=== PATIENT | male | born 1985 | race Caucasian/White ===

== ENCOUNTER → 2020-02-16 | Outpatient (CLI) | payer OTHER ==
[~2020-02-16] MED LIST: FLUTICASONE-SA1 EAC4 INH; PROAIR HFA8.5 GM INH; PROTONIX40 M2 PO
== END ==
LOC: M.LAB 14:42
PROVIDERS: ATTEND Surgery
DX: Z01.812 Encounter for preprocedural laboratory examination (principal); Z20.828 Contact with and (suspected) exposure to other viral communicable diseases; K80.20 Calculus of gallbladder without cholecystitis without obstruction

== ENCOUNTER → 2020-02-22 | Day surgery (SDC) | payer OTHER ==
[~2020-02-22] MED LIST changes: +OXYCODONE HCL5 MG PO
--- NOTE | 2020-02-24 09:02 | OP ---
[address] [address] OPERATIVE REPORT Name: DAVID URBINA Room: [facility].#: [id number] Admission: 02/22/20 Attend Phys: Mony Jackson DO Discharge: Date of : 89 Report #: [id number] THIS REPORT FOR: //name// cc: FARIDA Warren family physician/PCP FARIDA - Briana family physician/PCP ~ CC: Mony IQBAL physician/PCP DICTATED BY: Renny Tate DO DATE OF SERVICE: 02/22/2020 PREOPERATIVE DIAGNOSIS: Symptomatic gallstones. POSTOPERATIVE DIAGNOSIS: Symptomatic gallstones. SURGEON: Mony Jackson DO CO-SURGEON: Renny Tate, PGY5 MANAGER FLEET: MS Phillip3. OPERATION PERFORMED: Laparoscopic cholecystectomy. ANESTHESIA: General and local. ESTIMATED BLOOD LOSS: 3 mL. SPECIMEN: Gallbladder. COMPLICATIONS: None. CONDITION: Stable. DISPOSITION: PACU to home. INDICATIONS: The patient is a 34-year-old male who presented with a CT positive gallstones and history of episodic postprandial right upper quadrant pain. He was informed of the risks and benefits of laparoscopic cholecystectomy with risks including but not limited to bleeding, infection, bowel injury, bile duct injury, hernia formation, need for reoperation and need for open procedure. He understood these risks and decided to proceed with surgery. TECHNIQUE: After informed consent was obtained, the patient was brought to the operating room and placed in supine position. SCDs were on and running. Preoperative antibiotics were given. General anesthesia was administered with [facility] [address] [place] [address] OPERATIVE REPORT Name: DAVID URBINA Room: [facility]#: [id number] Admission: 02/22/20 Attend Phys: Mony Jackson DO Discharge: Date of : 89 Report #: [id number] an ET tube. Bilateral transversus abdominis plane blocks were placed by anesthesia. The patient was prepped and draped in the usual sterile fashion. A surgical pause was held to confirm proper patient and procedure. 0.5% Marcaine was injected inferior to the umbilicus. The infraumbilical skin was elevated with 2 Adson's and incised with an 11 blade. Dissection was carried through the subcutaneous fat using blunt dissection with S retractors. Fascia was identified and elevated with 2 Kochers and incised using cautery. Peritoneum was bluntly entered using a Alessandra. A finger was then introduced into the abdomen to confirm intraperitoneal location. A 0 Vicryl was then used to place stay sutures on either side of the fascia. The 12 mm Wandy trocar was introduced. The abdomen was insufflated. Camera was inserted into the abdomen. Attention was turned towards the right upper quadrant. The patient was positioned head up and right side up. A 5 mm port was placed in the epigastrium under direct visualization. A blunt grasper was used to reflect the omentum inferiorly and the gallbladder was identified and retracted superiorly. Two additional ports were placed in the right upper quadrant under direct visualization. The gallbladder was elevated. The peritoneum overlying the hepatocystic triangle was incised using cautery. This plane was developed laterally as well as medially. Blunt dissection was then used to circumferentially dissect the cystic duct and the cystic artery. Once a critical view of safety was obtained with 2 and only two structures entering the gallbladder, the cystic duct was doubly clipped as well as the cystic artery and both were cut using laparoscopic arcadio. The gallbladder was then elevated. Cautery was used to dissect the gallbladder free from the hepatic plate. Once completely freed, it was placed within an EndoCatch bag and placed aside. The liver bed was inspected for hemostasis. Cautery was used for hemostasis. The clips were intact. There was no ongoing bile leak. There was no bleeding from the cystic artery stump. The patient was positioned supine. The ports were removed under direct visualization. All counts were correct. The abdomen was desufflated. The specimen was removed through the umbilical incision. Previous stay sutures were elevated and replaced with Kochers. A single [id number] using 0 Vicryl was used to close the fascia. This wound was closed in layered fashion using 3-0 Vicryl, 4-0 Monocryl. Additional Marcaine was injected into the fascia as well as all the port sites. The remaining skin was closed using 4-0 Monocryl. All counts were correct. The wounds were cleansed and dressed with Dermabond. The patient was emerged from anesthesia and transferred to PACU in stable condition. <ELECTRONICALLY SIGNED> By: Mony Jackson DO 02/24/20 [id number] Jackson DO /nt
== END | disposition home or self-care (01) ==
LOC: M.SUR 10:25
PROVIDERS: ATTEND Surgery
DX: K80.20 Calculus of gallbladder without cholecystitis without obstruction (principal); K21.9 Gastro-esophageal reflux disease without esophagitis; J45.909 Unspecified asthma, uncomplicated; Z79.899 Other long term (current) drug therapy; Z98.890 Other specified postprocedural states; Z88.8 Allergy status to other drugs, medicaments and biological substances